=== PATIENT | female | born 2000 | race Hispanic/Latino ===

== ENCOUNTER 2019-05-28 19:57 | Outpatient (CLI) | payer OTHER ==
[~2019-05-28] VITALS: Ht 160 cm; Wt 61.8 kg
[2019-05-28 20:20] VITALS: BP 94/53
[2019-05-28] MEDS ORDERED: MULTTAB20 PO (20:22)
[2019-05-28 21:43] LABS: AMORPHOUS SEDIMENT SMALL (NEGATIVE); APPEARANCE, URINE TURBID (CLEAR); BACTERIA, URINE AUTO 1+ (NEGATIVE); BILIRUBIN, URINE AUTO NEGATIVE (NEGATIVE); BLOOD, URINE BLOOD 1+ (NEGATIVE); COLOR, URINE AMBER (YELLOW); GLUCOSE, URINE (UA) AUTO NEGATIVE (NEGATIVE); KETONE, URINE AUTO NEGATIVE (NEGATIVE); LEUKOCYTE ESTERASE, URINE AUTO 3+ (NEGATIVE); MUCUS, URINE SMALL (NEGATIVE); NITRITE, URINE AUTO NEGATIVE (NEGATIVE); PROTEIN, URINE AUTO 1+ mg/dL (NEGATIVE); RBC, URINE AUTO 15 /HPF (0-3); SPECIFIC GRAVITY URINE AUTO 1.024 (1.002-1.035); SQUAMOUS EPITHELIAL CELL UR AU 4 /HPF (0-6); UROBILINOGEN, URINE AUTO 0.2 mg/dL (0.0-2.0); WBC, URINE AUTO 100 /HPF (0-3)
[2019-05-28] MEDS ORDERED: FLUCONAZOLE 50MG TABLET PO ONE (21:45)
--- NOTE | 2019-05-28 21:47 | IPNPDOC ---
Text Note Date of Service The patient was seen on 05/28/19. NOTE patient is a 20 yo G1 @ 21+4wks gestation presents with concern for lower abdominal cramping x 3 days. She had diarrhea on friday and . watery, non bloody. Today she had cramping, less severe. denies fever/n/v. Vitals: normal NAD abd: nd, soft, gravid, nt le: no edema/erythema/tenderness speculum exam: vagina with clumpy discharge, no lesion, nt cervix visually closed and long doptones: 120 wet prep: neg clue cells/trich andre: neg whiff test, positive buds and hyphaes UA pending a/p patient with lower abdominal pain, like from having diarrhea. encourage hydration. vaginal verna, treat with diflucan x 1. return precautions given. f/u with regularly clinic apts. DO Lela VS,Fishbone, I+O VS, Fishbone, I+O Vital Signs Date Time Temp Pulse Resp B/P (MAP) Pulse Ox O2 Delivery O2 Flow Rate FiO2 05/28/19 20:20 97.7 80 16 94/53 (67) ZAYRA DOLL DO May 28, 2019 21:47
== END 2019-05-28 21:48 | disposition home or self-care (01) ==
LOC: M LDO 19:57
PROVIDERS: ATTEND Obstetrics & Gynecology
DX: O26.892 Other specified pregnancy related conditions, second trimester (principal); R10.30 Lower abdominal pain, unspecified; O23.592 Infection of other part of genital tract in pregnancy, second trimester; B37.3 Candidiasis of vulva and vagina
CPT/HCPCS: 81001; 87086; G0378; G0463

== ENCOUNTER 2019-10-04 04:02 | Outpatient (CLI) | payer OTHER ==
[~2019-10-04] VITALS: Ht 160 cm; Wt 74.6 kg
[~2019-10-04 04:02] MED LIST: MULTTAB20 PO
[2019-10-04 04:22] VITALS: BP 112/64
[2019-10-04] MEDS ORDERED: VITA100T59 PO (04:28)
[2019-10-04] MEDS ORDERED: IRON27TA2 PO (04:28)
[2019-10-04] MEDS ORDERED: VALT500T PO (04:28)
--- NOTE | 2019-10-04 05:34 | IPNPDOC ---
Text Note Date of Service The patient was seen on 10/04/19. NOTE patient is a 19 yo G1 @ 40wks gestation presents with regular painful contraction. reports vaginal spotting. denies RADHIKA. +FM. vitals: normal NAD abd: gravid, soft, nt, cephalic le: no edema/erythema/tenderness ce: /-3, posterior (per nursing check) fht: 130/mod gabriel/pos accel/ no decel toco: ctx q 3-8mins. /p patient in early labor. discussed with patient s/s to come back. patient has appointment in clinic scheduled today, she may cancel. Offer induction date scheduled for 41 weeks if she is not delivered by then. patient amendable to induction at 41 weeks. scheduled for 2019. All questions answered. DO Lela VS,Katie, I+O VS, Fishbone, I+O Vital Signs Date Time Temp Pulse Resp B/P (MAP) Pulse Ox O2 Delivery O2 Flow Rate FiO2 10/04/19 04:22 97.5 82 18 112/64 (80) ZAYRA DOLL DO Oct 04, 2019 05:34
== END 2019-10-04 05:35 | disposition home or self-care (01) ==
LOC: M LDO 04:02
PROVIDERS: ATTEND Obstetrics & Gynecology
DX: O26.853 Spotting complicating pregnancy, third trimester (principal); O60.03 Preterm labor without delivery, third trimester; Z3A.40 40 weeks gestation of pregnancy
CPT/HCPCS: 59025; G0378; G0463

== ENCOUNTER 2019-10-05 03:46 | Inpatient (IN) | payer OTHER ==
[~2019-10-05] VITALS: Ht 160 cm; Wt 74.4 kg
[2019-10-05] VITALS (54 sets, daily range): BP systolic 81–190; BP diastolic 49–110
[~2019-10-05 03:46] MED LIST changes: +IRON27TA2 PO; +VALT500T PO; +VITA100T59 PO
[2019-10-05] MEDS ORDERED: PENICILLIN G POTASSIUM IV 5 MU in D5W MINI-BAG PLUS 100 ML IV STA (04:51)
[2019-10-05] MEDS ORDERED: LACTATED RINGER'S 1000 ML IV STA (04:51)
[2019-10-05] MEDS ORDERED: PROMETHAZINE INJ 25 MG/ML VIAL (J2550) IV PRN (05:00)
[2019-10-05] MEDS ORDERED: SIMETHICONE 80 MG CHEW TAB PO PRN (05:00)
[2019-10-05] MEDS ORDERED: MOM 30ML SUSPENSION UDC PO PRN (05:00)
[2019-10-05] MEDS ORDERED: CALCIUM CARBONATE 500 MG CHEW U/D PO PRN (05:00)
[2019-10-05] MEDS ORDERED: BUTORPHANOL 2 MG/ML INJ (J0595) IV PRN (05:00)
[2019-10-05] MEDS ORDERED: diphenhydrAMINE 25MG CAP PO PRN (05:00)
--- NOTE | 2019-10-05 05:15 | HPEPDOC ---
Obstetrical History & Physical General Date of Admission Oct 05, 2019 at 04:15 History of Present Illness Patient is a 19yo at 40wks. Patient c/o contractions q3-5min since mi dnight. No LOF or VB. No headache or visual changes. Some bloody discharge. Good movement. Chief Complaint: Contractions, term Information Provided By: Patient Care Care: Other (per patient good care) Dating Final EDC by: LMP Past Medical History Past Obstetrical History : Past Obstetrical History: [employer] History: No pertinent history Past Medical History Medical History none Surgical History: Denies/None Family History Significant Family History: No pertinent family hx Social History Marital Status: Family situation: Spouse/partner home Psychosocial History: No pertinent psych hx * Smoker: non-smoker Alcohol: Denies Drugs: denies Abuse Violence Screening Have you been hit/kicked/slapp: No Have you been sexually assault: No Allergies Coded Allergies: No Known Allergies (Unverified , 05/28/19) Medications Scheduled Ascorbic Acid (Vitamin C) 100 Mg Tablet, 1 TAB PO DAILY Ferrous Gluconate (Iron) 236 Mg Tablet, 1 TAB PO DAILY No122/Iron/Folic Acid ( Multi Tablet) 1 Each Tablet, 1 TAB PO DAILY Valacyclovir HCl (Valtrex) 500 Mg Tablet, 1 TAB PO DAILY Physical Examination Physical Examination GENERAL: Alert and oriented times three. BREAST: . ABDOMEN: Gravid and non-tender to touch. FETUS: Is vertex (VTX) by sterile vaginal examination (SVE). EXTREMITIES: No edema. Laboratory Data 24H LABS Laboratory Tests 2 10/05/19 04:44: CBC/BMP Pertinent Laboratoy Data Blood Type: A+ RBC Antibody Screen: Negative HIV: Negative Hepatitis B: Negative Rapid Plasma Reagin: Nonreactive Rubella: Immune Varicella: Nonreactive Chlamydia/Gonorrhea: Negative Group B Streptococcus: Positive Steroid Therapy Steroid Therapy: No Vaginal Examination Dilation: 6 cm Effacement: 80% Station: -2 Cervical Position: Middle Presentation: Cephalic presentation Assessment Heart Rate (FHR): 130 Variability: Moderate Accelerations: Positive Decelerations: None Tocometer Contractions: Yes Frequency: every 3-7 min. Strength: palpated as strong Multi-drug resistant Organism: No history of MDRO Assessment/Plan Assessment Patient is a 19yo at 40wks. Admit for active labor and expect delivery by . Pain management per patient preference, which was discussed with her. I discussed risks of with patient of failure with section, distress, bleeding, infection, , vaginal or perineal or neighboring organ tear. Currently, fetus is reassuring. GBS is positive, she will need antibiotics. Chart not available during admission. Plan Admit and orient. Demolition Specialist and consent. Diet: clear. Group B Streptococcus (GBS) positive. Labs and intravenous (IV) per unit protocol. Counseled on Pitocin and induction of labor (IOL). Lactated Ringers (LR): Bolus 500 mL, then at 125 mL/hr. Anticipate normal spontaneous delivery (). C-S as appropriate as explained. Pain management per patient desires. Renu Reyez MD Oct 05, 2019 05:15
[2019-10-05 05:16] LABS: BASO # 0.1 10^3/uL (0.0-0.2); BASO % 0.5 % (0.0-1.0); EOS # 0.1 10^3/uL (0.0-0.5); EOS % 0.4 % (0.0-3.0); HEMATOCRIT 36.2 % (36.0-47.0); HEMOGLOBIN 11.5 g/dl (12.0-15.5); LYMPH # 2.3 10^3/uL (1.5-5.0); LYMPH % 19.1 % (24.0-44.0); MEAN CORPUSCULAR HEMOGLOBIN 25.9 pg (27.0-33.0); MEAN CORPUSCULAR HGB CONC 31.8 g/dl (32.0-36.5); MEAN CORPUSCULAR VOLUME 81.5 fl (80.0-96.0); MONO # 0.7 10^3/uL (0.0-0.8); MONO % 5.6 % (0.0-5.0); NEUTROPHILS # 8.8 10^3/uL (1.5-8.5); NEUTROPHILS % 72.9 % (36.0-66.0); PLATELET COUNT, AUTOMATED 302 10^3/uL (150-450); RED BLOOD COUNT 4.44 10^6/uL (4.00-5.40); WHITE BLOOD COUNT 12.1 10^3/uL (4.0-10.0)
[2019-10-05] MEDS ORDERED: FENTANYL 2MCG/ML ROPIVACAINE 0.2% IN 0.9% NACL 100ML IVBAG As Ordered ONE (05:36)
[2019-10-05] MEDS: LR 1,000 ML IV SCH ×2 (05:49→09:40)
[2019-10-05] MEDS ORDERED: ePHEDrine SULFATE 25 MG/5 ML(5MG/ML) SYRINGE As Ordered ONE (06:32)
[2019-10-05] MEDS: ePHEDrine SULFATE 25 MG/5 ML(5MG/ML) SYRINGE IV PRN ×2 (06:34→06:53)
[2019-10-05] MEDS ORDERED: diphenhydrAMINE 50MG/ML VIAL (J1200) IV PRN (07:00)
[2019-10-05] MEDS ORDERED: EPIDURAL/PCA KEYS XX PRN (07:00)
[2019-10-05] MEDS ORDERED: ONDANSETRON 4MG/2ML VIAL IV PRN (07:00)
[2019-10-05] MEDS ORDERED: NALOXONE INJ 0.4MG/1ML VIAL (J2310 PER 1MG) IV PRN (07:00)
[2019-10-05] MEDS ORDERED: LACTATED RINGER'S 1000 ML IV PRN (07:00)
[2019-10-05] MEDS ORDERED: FENTANYL/ROPIVACAINE/NACL BAG 100 ML EPIDURAL SCH (07:00)
[2019-10-05] MEDS ORDERED: REFRIGERATOR IV KEYS XX PRN (07:00)
[2019-10-05] MEDS ORDERED: EPIDURAL COMMENT XX SCH (07:00)
[2019-10-05] MEDS ORDERED: OXYTOCIN 30 UNITS IN 0.9% NaCl 500ML IV BAG (J2590) As Ordered ONE (07:29)
[2019-10-05] MEDS: PRENATAL VITAMINS CHEWABLE TABLET PO SCH (09:00)
[2019-10-05] MEDS ORDERED: PENICILLIN G POTASSIUM IV 2.5 MU in IV 1 EA IV SCH (10:00)
[2019-10-05] MEDS ORDERED: DIBUCAINE 1% OINTMENT 30GM TOP PRN (13:30)
[2019-10-05] MEDS ORDERED: MEASLES,MUMPS,RUBELLA VACCINE INJ (MMR-II) (90707) SC SCH (13:30)
[2019-10-05] MEDS ORDERED: RHOGAM 300 MCG (1500 IU) INJ (J2790) IM SCH (13:30)
[2019-10-05] MEDS ORDERED: METHYLERGONOVINE MALEATE 0.2 MG TAB PO PRN (13:30)
[2019-10-05] MEDS ORDERED: ANUSOL HC CREAM 30GM TOP PRN (13:30)
[2019-10-05] MEDS ORDERED: OXYTOCIN DRIP 30 UNITS in IV 1 EA IV ONE (14:30)
[2019-10-05] MEDS: NAPROXEN 250 MG TAB PO PRN (15:46)
[2019-10-05] MEDS: DOCUSATE SODIUM 100 MG CAP PO SCH (20:23)
[2019-10-05] MEDS: ACETAMINOPHEN 500 MG TAB PO PRN (20:24)
[2019-10-06 06:00] VITALS: BP 104/54
--- NOTE | 2019-10-06 07:04 | IPNPDOC ---
Progress Note Date of Service: Oct 06, 2019 Day#: 1 Progress Note SUBJECT: Patient is a 19-year-old 1 now Para 1 status post uncomplicated spontaneous vaginal delivery, doing well day #1. She has been ambulating, voiding spontaneously without issue and tolerating regular diet. Breast feeding without issue. Reports lochia is like a normal period. Patient is ambulating well. Reports some cramping with . Has pain in ribs with movement especially getting up or deep breaths. OBJECTIVE: VITAL SIGNS: Within normal limits, afebrile. GENERAL: No acute distress HEENT: MMM BREAST: Nontender, no erythema CARDIOVASCULAR EXAMINATION: RRR RESPIRATORY EXAMINATION: Bilaterally clear ABDOMINAL EXAMINATION: Soft, appropriate tenderness, nondistended, fundus -2 PERINEUM: Intact, minimal lochia EXTREMITIES: no edema, nontender ASSESSMENT: Patient is a 19-year-old 1 now Para 1 status post uncomplicated spontaneous vaginal delivery, doing well day #1.Vitals within normal limits, afebrile, hemodynamically stable with no evidence of infection. PLAN: 1. Continue care. 2. Tylenol and Naproxen for pain. Encouraged Naproxen use for MSK pain. 3. Encourage breast feeding and ambulation. VS[facility]O Vital Signs Date Time Temp Pulse Resp B/P (MAP) Pulse Ox O2 Delivery O2 Flow Rate FiO2 10/05/19 07:46 90 18 107/57 (74) 10/05/19 07:08 96.5 Laboratory Data 24H LABS Laboratory Tests 2 10/05/19 04:44: Immature Granulocyte % (Auto) 1.5, Neutrophils (%) (Auto) 72.9H, Lymphocytes (%) (Auto) 19.1L, Monocytes (%) (Auto) 5.6H, Eosinophils (%) (Auto) 0.4, Basophils (%) (Auto) 0.5, Neutrophils # (Auto) 8.8H, Lymphocytes # (Auto) 2.3, Monocytes # (Auto) 0.7, Eosinophils # (Auto) 0.1, Basophils # (Auto) 0.1, Nucleated Red Blood Cells % (auto) 0.0, Hepatitis B Surface Antigen (Rapid) NEGATIVEL, HIV 1&2 Antibody (2) NEGATIVE, HIV P24 Antigen, Qualitative NEGATIVE 10/05/19 08:16: Serology Scanned Report Hepatitis B Testing CBC/BMP Laboratory Tests 10/05/19 04:44 Renu Reyez MD Oct 05, 2019 13:26
[2019-10-06] MEDS: NAPROXEN 250 MG TAB PO PRN (07:45)
[2019-10-06] MEDS: DOCUSATE SODIUM 100 MG CAP PO SCH ×2 (07:46→21:27)
[2019-10-06] MEDS: PRENATAL VITAMINS CHEWABLE TABLET PO SCH (07:46)
[2019-10-06] MEDS: ACETAMINOPHEN 500 MG TAB PO PRN (17:32)
[2019-10-06 18:00] VITALS: BP 99/51
[2019-10-07 05:41] VITALS: BP 96/52
[2019-10-07] MEDS: ACETAMINOPHEN 500 MG TAB PO PRN (06:46)
[2019-10-07] MEDS: PRENATAL VITAMINS CHEWABLE TABLET PO SCH (07:46)
[2019-10-07] MEDS: DOCUSATE SODIUM 100 MG CAP PO SCH (07:46)
--- NOTE | 2019-10-07 07:47 | IPNPDOC ---
Progress Note Date of Service: Oct 07, 2019 Day#: 2 Progress Note SUBJECT: patient is a 19 yo s/p PPD #2. patient without complaints t fran. She has been ambulating, voiding spontaneously without issue and tolerating regular diet. Breast feeding without issue. Reports lochia is light. plans for nexplanon for contraceptive. OBJECTIVE: VITAL SIGNS: Within normal limits, afebrile. Alert and oriented times three. Abdomen: Fundus firm at U-2. Soft, NTTP. le: no edema/erythema/tenderness A/P ppd #2, doing well. encourage BF. discussed contraceptive options and patient plans on nexplanon. continue with routine PPC. d/c home today. DO Lela VS, I&O, 24H, Fishbone Vital Signs/I&O Vital Signs Date Time Temp Pulse Resp B/P (MAP) Pulse Ox O2 Delivery O2 Flow Rate FiO2 10/07/19 05:41 98.2 61 18 96/52 (67) 10/06/19 06:00 97 Room Air ZAYRA DOLL DO Oct 07, 2019 07:47
--- NOTE | 2019-10-07 07:48 | OBDS ---
[facility] Obstetrical Discharge Sum. Obstetrical Discharge Summary Lockstitch Collar Setter/Provider: Renu Reyez MD : 1 Term: 1 Pre-term: 0 Abortions: 0 Livin VDRL: Non-Reactive Rh: Positive Sex: Male Weight: pounds (8), ounces (5) Anesthesia: Regional Anesthesia A/P, Post Course List any complications Admission diagnosis: labor at 40wks gestation Discharge diagnosis: () Condition at Discharge: stable Discharge Instructions: Home Activity: as tolerated Diet: regular Medications: filled at [facility] Follow-up: 6-8wks Hospital course: Patient admitted in labor. She progressed to have a spontaneous vaginal delivery. course uncomplicated and patient discharged home on day #2. ZAYRA DOLL DO Oct 07, 2019 01:19
== END 2019-10-07 13:00 | disposition home or self-care (01) | DRG 807 ==
LOC: M LDO 03:46 → M LDI 04:15 → M OBS 16:07
PROVIDERS: ADMIT Obstetrics & Gynecology; ATTEND Advanced Practice Midwife
PROC: 10E0XZZ Delivery of Products of Conception, External Approach (ICD-10-PCS; principal; 2019-10-05)
PROC: 0KQM0ZZ Repair Perineum Muscle, Open Approach (ICD-10-PCS; 2019-10-05)
PROC: 10907ZC Drainage of Amniotic Fluid, Therapeutic from Products of Conception, Via Natural or Artificial Opening (ICD-10-PCS; 2019-10-05)
DX: O99.824 Streptococcus B carrier state complicating childbirth (principal); Z37.0 Single live birth; Z3A.40 40 weeks gestation of pregnancy; O69.81X0 Labor and delivery complicated by cord around neck, without compression, not applicable or unspecified; O70.1 Second degree perineal laceration during delivery